=== PATIENT | female | born 1950 | race Caucasian/White ===

== ENCOUNTER → 2018-01-24 | Day surgery (SDC) | payer MEDICARE, BC ==
[~2018-01-24] MED LIST: ACETAMINOPHEN 1000 MG/100 ML 100 ML IV ONE; ACETAMINOPHEN/HYDROcodone 325 MG/5 MG TAB ONE; BUPIVACAINE/EPINEPHRINE 0.5% PF 30 ML VIAL ONE; GLYCOPYRROLATE 0.2 MG/ML VIAL IV ONE; KETOROLAC TROMETHAMINE 30 MG/ML (IVP) VIAL IV PUSH ONE; LACTATED RINGER'S 1000 ML INJ 1,000 ML ONE; METRONIDAZOLE 500 MG IV ONE; MIDAZOLAM HCL 2 MG/2 ML VIAL ONE; MORPHINE SULFATE 2 MG/ML SYRINGE ONE; NEOSTIGMINE METHYLSULFATE 10 MG/10 ML VIAL IV PUSH ONE; ONDANSETRON HCL 4 MG/2 ML VIAL IV PUSH ONE; PROPOFOL 200 MG/20 ML AMP IV ONE; ceFAZolin INJ 1,000 MG VIAL ONE
--- NOTE | 2018-01-24 19:14 | MP ---
cc: Jarrod Brown MD,Luly Bianchi MD, MD,Esperanza Solorzano MD DATE OF OPERATION: 01/24/2018 PROCEDURE: 1. Laparoscopic cholecystectomy. 2. Primary repair of umbilical hernia. PREOPERATIVE DIAGNOSIS: Epigastric and right upper quadrant pain with cholelithiasis. POSTOPERATIVE DIAGNOSIS: Epigastric and right upper quadrant pain with cholelithiasis. Umbilical hernia, reducible. ANESTHESIA: General endotracheal SURGEON: Jarrod Brown MD ESTIMATED BLOOD LOSS: 10 mL FLUIDS: 650 mL crystalloid. COMPLICATIONS: None. DRAINS: None. SPECIMENS: Gallbladder and contents to pathology. PROCEDURE IN DETAIL: The patient was taken to the operating room and placed on the operating table in the supine position. After an adequate level of general endotracheal anesthesia was achieved, the abdomen was prepped and draped in the usual fashion. Timeout was taken confirming the correct patient, site, and procedure to be performed. Skin and subcutaneous tissue was infiltrated with local anesthetic and an incision made in the umbilicus and carried through the fascia sharply. The preperitoneal fat was taken down from the umbilical hernia and the peritoneal cavity was directly visualized. A 12 mm balloon trocar was inserted and the balloon inflated. The abdomen was insufflated. The patient was placed in reverse Trendelenburg position. Three 5 mm trocars were then placed, with the first to the right of the falciform ligament and second and third in the right subcostal region. All entered the abdominal cavity under direct vision uneventfully. With the patient in reverse Trendelenburg position, the fundus of the gallbladder was grasped and retracted up and over the dome of the liver. The cystic duct infundibular junction was circumferentially dissected. A very diminutive cystic artery was circumferentially dissected as well. A single clip was placed on this and it was divided. The cystic duct was circumferentially dissected further and, as the patient had normal liver function tests and normal caliber common bile duct as well as normal appearing ductal anatomy, cholangiogram was not obtained. The cystic duct was doubly clipped distally, singly clipped on the gallbladder side and divided. The gallbladder was dissected off of the liver bed with electro dissection. The gallbladder was removed via the umbilical port while observing via the upper 5 mm trocar site. The specimen was passed off the table. The upper abdomen was revisualized with the liver bed, the cystic duct stump and small cystic artery all revisualized and seen to be clean and dry. Insufflation was then discontinued and the upper abdominal trocars were removed under direct vision. No bleeding was noted from the trocar sites during desufflation. The laparoscope and umbilical port were then removed. The fascia was closed in the umbilicus with simple interrupted 0 Vicryl suture to close the hernia. The remaining local anesthetic was injected into each of the trocar sites. All 4 trocar sites were closed at the skin with 4-0 Vicryl in an interrupted buried fashion. All sites were dressed with Steri-Strips. The patient was extubated and taken back to the recovery room in stable condition. She tolerated the procedure well. MD TRISH Alcantara/ , 06:54 PM , 07:13 PM MIGUEL ANGEL
== END | disposition home or self-care (01) ==
LOC: ESDC 06:23
PROVIDERS: ATTEND Surgery Trauma Surgery
DX: K80.20 Calculus of gallbladder without cholecystitis without obstruction (principal); K42.9 Umbilical hernia without obstruction or gangrene
CPT/HCPCS: 00750; 00790; 47562; 49585; 88304; J0131; J0690; J1885; J2250; J2270; J2405; J2710; J3010; J7120

== ENCOUNTER 2018-04-09 08:27 | Inpatient (IN) ==
[2018-04-09] MEDS ORDERED: Chlorhexidine Gluconate 2% 1 Pack (2 Cloths) TOPICAL SCH (09:30)
[2018-04-09] MEDS ORDERED: Chlorhexidine 4% Topical 120 APPLIC/120 ML Bottle TOPICAL SCH (09:30)
[2018-04-09] MEDS ORDERED: Metoprolol Tartrate 25 MG Tablet PO SCH (09:30)
[2018-04-09] MEDS ORDERED: Vancomycin Inj 1 GM/200 ML PIGGYBACK IV.SIG SCH (10:00)
[2018-04-09] MEDS ORDERED: Sodium Chlor 0.9% Inj 500 ML IV.SIG SCH (10:00)
[2018-04-09] MEDS ORDERED: Dexamethasone Inj 20 MG/5 ML Vial IV.PUSH ONE (10:00)
[2018-04-09] MEDS ORDERED: ceFAZolin 2 GM Premix Inj 2 GM/50 ML PIGGYBACK IV.SIG SCH (10:00)
[2018-04-09] MEDS ORDERED: SODIUM CHLOR 0.9% IV.SIG SCH (10:00)
[2018-04-09] MEDS ORDERED: TRANEXAMIC ACID IV.SIG SCH (10:00)
[2018-04-09] MEDS ORDERED: Sodium Chlor 0.9% Inj 73.07 ML, Ropivacaine 0.5% PF Inj 24.63 ML, Ketorolac Inj 30 MG, ... P-ARTICULR SCH ×5 (10:00)
[2018-04-09] MEDS ORDERED: Bupivacaine Liposomal PF 1.3% Inj 20 ML Vial ONE ×2 (10:49→11:12)
[2018-04-09] MEDS ORDERED: Glycopyrrolate Inj 1 MG/5 ML Syringe IV.PUSH ONE (12:00)
[2018-04-09] MEDS ORDERED: hydrALAZINE HCl Inj 20 MG/ML Vial IV.PUSH ONE (12:00)
[2018-04-09] MEDS ORDERED: Neostigmine Inj 5 MG/5 ML Syringe IV.PUSH ONE (12:00)
[2018-04-09] MEDS ORDERED: Labetalol HCl Inj 100 MG/20 ML Vial IV.CONT ONE (12:00)
[2018-04-09] MEDS ORDERED: Lidocaine PF 1% Inj 5 ML Syringe INFILTRATN ONE (12:00)
[2018-04-09] MEDS ORDERED: Bisacodyl 10 MG Supp RECTAL PRN (13:12)
[2018-04-09] MEDS ORDERED: Post-op Orders (for Pharmacy) OTHER STA (13:12)
[2018-04-09] MEDS ORDERED: Morphine Inj 4 MG/ML Vial IV.PUSH PRN (13:12)
[2018-04-09] MEDS ORDERED: Aluminum/Magnesium/Simethacone Susp 30 ML UDC PO PRN (13:12)
--- NOTE | 2018-04-09 13:17 | P.OP ---
- Preoperative Diagnosis (1) Osteoarthritis of left knee - Postoperative Diagnosis (1) Osteoarthritis of left knee Date of procedure: 04/09/18 Procedure: Left total knee arthroplasty Anesthesia: GETA, regional (Adductor canal) Surgeon: Doug Biswas MD Medical Photographer: LAMBERT Nicholas The surgical procedure was assisted by my Advanced Registered Nurse Practitioner. My RECORD PRESS SUPERVISOR presence was necessary throughout this case for the manipulation and positioning of the surgical extremity. My RECORD PRESS SUPERVISOR was assisting me throughout the duration of this procedure. The skill set of an Advance Registered Nurse Practitioner was medically necessary to complete this procedure. During the surgical case, the surgical aides teacher was working at the back table and the Advance Registered Nurse Practitioner was directly assisting me. Operation and Findings: IMPLANTS: DePuy Attune: Patella: size 38. Femur, posterior stabilized size 5. Tibia, rotating platform size 4. Tibial insert, rotating platform, posterior stabilized size 5 mm thickness. ESTIMATED BLOOD LOSS: 150 cc TOURNIQUET TIME: 41 minutes at 250 mmHg pressure. JUSTIFICATION FOR PROCEDURE: The patient has end-stage osteoarthritis to the knee. There is an attached conservative measures pathway form in the chart that describes the nonoperative measures that were undertaken prior to consideration of surgical management. The patient understood the risks and benefits of surgical management. See my office notes for further details PROCEDURE: The patient was brought back to the operative theatre. Adequate anesthesia was obtained. The patient received intravenous vancomycin and Ancef. The lower extremity was prepped and draped in the usual sterile fashion.The leg was exsanguinated, the tourniquet was raised. A standard anterior incision was performed followed by medial parapatellar arthrotomy was performed. End-stage arthritis was identified. Osteotomy of the patella was performed. We drilled holes for the patella. We trialed the patella component. We placed an intramedullary guide into the distal femur. We ultimately resected 13 mm off of the distal femur in 5 degrees of valgus. The remnants of the ACL and PCL were resected. Osteotomy of the proximal tibia was performed, resecting 5 mm off of the medial side. This was done with 3 degrees of posterior slope using an extramedullary guide. The distal end of the guide was placed in the mid aspect of the ankle. The femur was sized, and four chamfer cuts were completed in 3 of external rotation. We then cut the central box in the distal femur to replace the PCL. We resected the remnants of the menisci and removed osteophytes off of the femur and tibia. We then trialed the knee. We punched the tibia for the keel, and then used standard technique to cement in components. Excess cement was removed. We trialed the knee again and the final polyethylene thickness was chosen to provide extension to 0 degrees, and flexion of 140 degrees to gravity. The ligaments were appropriately balanced. Lateral release was necessary to obtain excellent patellofemoral tracking. The tourniquet was released and adequate hemostasis was obtained. An intra- articular injection of a ropivacaine cocktail was injected. The posterior knee was inspected for excess cement, which was removed. The final polyethylene was put into position after thorough irrigation. We then closed deep fascia with a #2 Stratafix followed by skin with 2-0 Vicryl followed by Dermabond dressing. Postop plan is to weight-bear as tolerated. DVT prophylaxis will be performed with SCDs, JAIME thomas, early mobilization, and Lovenox followed by aspirin.
[2018-04-09] MEDS ORDERED: fentaNYL Citrate Inj 100 MCG/2 ML Ampul ONE (14:00)
[2018-04-09] MEDS ORDERED: SODIUM CHLOR 0.9% IV.SIG ONE (14:00)
[2018-04-09] MEDS ORDERED: TRANEXAMIC ACID IV.SIG ONE (14:00)
[2018-04-09] MEDS: Sod Chloride 0.9% Inj 1,000 ML IV.CONT SCH (14:19)
[2018-04-09] MEDS ORDERED: *morphine SULFATE 4 MG/ML PERIprocedure ONLY ONE ×2 (14:24→14:41)
--- NOTE | 2018-04-09 15:08 | XR ---
EXAM DATE: 04/09/2018 3:00 PM EDT AGE/SEX: 67 years / Female INDICATIONS: Post op left knee surgery. CLINICAL DATA: This is the patient's initial encounter. Patient reports that signs and symptoms have been present for 1 day and indicates a pain score of 7/10. MEDICAL/SURGICAL HISTORY: None. None. COMPARISON: No prior exams available for comparison. FINDINGS: There is a knee prosthesis in place. There is good position and alignment of the bony structures. The bony structures are grossly intact. Postsurgical changes are demonstrated. CONCLUSION: Good position and alignment on this postoperative study. Electronically signed by: Mau Rueda MD 04/09/2018 3:07 PM EDT
[2018-04-09] MEDS ORDERED: HYDROmorphone PF Inj 2 MG/ML Vial ONE (15:10)
--- NOTE | 2018-04-09 15:51 | P.DCO ---
- Physical Therapy Physical Therapy: Gait training, Transfer training, bed to chair Knee: Total knee Left Lower Extremity Weight Bearing: Weight bearing as tolerated Left Lower Extremity Range of Motion: Active ROM - Nursing Nursing: Stephany dill Dressing changes: Do not change dressing Additional instructions: First dressing change in the office - Certification Need for Home Health services: I have seen patient Tanisha Paredes on 04/09/18. My clinical findings support the need for the requested home health care services because: Need for Home Health Services: Deconditioned with increased weakness, High risk of falls Homebound Certification: I certify that my clinical findings support that this patient is homebound because: Homebound Certification: Post-op weakness, Unsteady gait/balance
[2018-04-09] MEDS ORDERED: traZODone 50 MG Tablet PO SCH (21:00)
[2018-04-09] MEDS ORDERED: Zolpidem Tartrate 5 MG Tablet PO PRN (21:00)
[2018-04-09] MEDS: Pantoprazole Sodium 20 MG DR Tablet PO SCH (22:16)
[2018-04-09] MEDS: Senna/Docusate Sodium 8.6/50 MG Tablet PO SCH (22:17)
[2018-04-09] MEDS: Multivitamin/Minerals Therapeutic Tablet PO SCH (22:17)
[2018-04-10 05:56] LABS: Hematocrit 35.4 % (35.0-46.0); Hemoglobin 11.3 gm/dL (11.6-15.3)
[2018-04-10] MEDS ORDERED: Levothyroxine 125 MCG Tablet PO SCH (06:00)
[2018-04-10] MEDS ORDERED: Dexamethasone Inj 20 MG/5 ML Vial IV.PUSH ONE (08:00)
[2018-04-10] MEDS ORDERED: Venlafaxine XR 37.5 MG Capsule PO SCH (09:00)
[2018-04-10] MEDS ORDERED: Fenofibrate 145 MG Tablet PO SCH (09:00)
[2018-04-10] MEDS ORDERED: buPROPion 150 MG 12 HR Tablet PO SCH (09:00)
[2018-04-10] MEDS: Sod Chloride 0.9% Inj 1,000 ML IV.CONT SCH (09:02)
[2018-04-10] MEDS: Multivitamin/Minerals Therapeutic Tablet PO SCH (09:03)
[2018-04-10] MEDS: Senna/Docusate Sodium 8.6/50 MG Tablet PO SCH (09:03)
[2018-04-10] MEDS: Pantoprazole Sodium 20 MG DR Tablet PO SCH (09:04)
[2018-04-10] MEDS ORDERED: Enoxaparin Inj 40 MG/0.4 ML Syringe SQ SCH (13:00)
--- NOTE | 2018-04-10 19:05 | P.PNOP ---
Subjective Interval history: The patient has requested early discharge today prior to evaluation by the undersigned. Physical Exam Vital signs: Vital Signs 04/09/18 20:00 04/10/18 00:00 04/10/18 04:00 Temperature 97.4 F L 97.5 F L 97.7 F Pulse Rate 88 86 65 Respiratory Rate 17 18 17 Blood Pressure 124/80 92/53 L 97/58 L Pulse Oximetry 96 93 L 96 04/10/18 08:00 04/10/18 12:00 Temperature 98.0 F 97.8 F Pulse Rate 65 63 Respiratory Rate 17 18 Blood Pressure 106/57 L 118/68 Pulse Oximetry 97 99 Intake & Output 04/10/18 04/10/18 04/11/18 06:59 18:59 06:59 Intake Total 200 / 200 Balance 200 / 200 Weight 92.6 kg Intake: IV 200 / 200 Ancef Inj 1,000 MG In NS Inj 200 / 200 100 ML @ 200 mls/hr IV.SIG Q6H ANASTASIA Rx#:[id number] Other: # Voids 2 Date of Last Bowel Movement 04/08/18 04/08/18 Results - Labs CBC & Chem 7: 04/10/18 04:55 Laboratory Results - last 24 hr 04/10/18 04:55 Hgb 11.3 L Hct 35.4 Assessment and Plan - Problem List (1) Status post total knee replacement, left Code(s): Z96.652 - Presence of left artificial knee joint Status: Acute (2) Osteoarthritis of left knee Code(s): M17.12 - Unilateral primary osteoarthritis, left knee Status: Acute - Assessment and Plan POD #1: Left total knee arthroplasty 1. Weightbearing as tolerated on left lower extremity. 2. Lovenox followed by aspirin for DVT prophylaxis. 3. Ice as needed for swelling. 4. Stable per ortho for discharge to home health. The patient was discharged prior to evaluation today by the undersigned. The patient had a clean, dry, and intact dressing per conversation with the nurse. The patient's postop labs were reviewed prior to discharge by the undersigned. The patient was instructed in her postop plan of care prior to surgery and reinforced today by staff per the undersigned's request. 5. The patient will follow up with Dr. Biswas and/or LAMBERT Gray as previously scheduled.
--- NOTE | 2018-04-23 16:07 | P.DS ---
Date of admission: 04/09/18 08:27 Primary care physician: Dr Esperanza Kim Attending physician on discharge: Doug Biswas Anticipated date of discharge: 04/10/18 Brief History from admission: The patient has a history of severe OA of the left knee and was admitted for a left TKA DS: Diagnosis - Discharge Diagnosis (1) Status post total knee replacement, left Status: Acute Diagnosis: Principal (2) Osteoarthritis of left knee Status: Acute Diagnosis: Principal DS: Summary Hospital Course: The patient was admitted to the hospital for severe osteoarthritis of the [left ] knee to have a [left] total knee arthroplasty. The patient's surgery went well with no complication. The patient is on a [regular] diet. The patient's DVT prophylaxis includes use of [Lovenox followed by aspirin]. The patient is weightbearing as tolerated. The patient was discharged [home with home health] and will follow up in the office with Dr. Biswas and/or LAMBERT Gray as previously scheduled. - Time Spent with Patient Total time spent providing and/or coordinating discharge services: Greater than 30 minutes - Quality: VTE Deep Vein Thrombosis/Pulmonary Embolism Present on Admission: No Exam Narrative: See last progress note for physical examination Results Procedures completed during hospitalization: Left TKA - Impressions ITS Impressions Knee X-Ray 04/09/18 13:12 CONCLUSION: Good position and alignment on this postoperative study. Discharge Plan - Discharge Disposition Patient Disposition: W/Home Health Service - Discharge Condition Condition: Stable - Discharge Order Discharge Orders: Discharge Order (Routine); Ordered 04/09/18 Ordered By: Markie Yost - Discharge Details Anticipated Discharge Date: 04/10/18 Discharge Comment: The patient will follow-up in the office as previously scheduled with Dr. Biswas or LAMBERT Gray - Physicians Team Attending Provider: Doug Biswas - Rxs /Orders / Referrals /Forms Prescriptions: Continue biotin 2,500 mcg Capsule 2,500 mcg PO DAILY bupropion HCl 150 mg Tablet Extended Release 12 Hr 150 mg PO DAILY fenofibrate 160 mg Tablet 160 mg PO DAILY irbesartan 150 mg Tablet 150 mg PO BID levothyroxine [Synthroid] 125 mcg Tablet 125 mcg PO DAILY pantoprazole 20 mg Tablet,Delayed Release (Dr/Ec) 20 mg PO BID trazodone 50 mg Tablet 50 mg PO HS venlafaxine 37.5 mg Tablet Extended Release 24hr 37.5 mg PO DAILY Discontinued aspirin [Aspir-81] 81 mg Tablet,Delayed Release (Dr/Ec) 81 mg PO DAILY ibuprofen [Advil] 200 mg Tablet 600 mg PO DAILY PRN (Reason: Pain) No Action hydrocodone-acetaminophen [[place]] 5-325 mg tablet 1 tab PO Q4H PRN (Reason: pain) Qty: 20 RF: 0 Ambulatory Orders / Order Sets / DME: Adjustable Commode 3-in-1 (1 each) (Routine) Location: Determined by Patient Ordered By: Markie Yost CPM - Continuous Passive Motion Machine (1 each) (Routine) Location: Determined by Patient Ordered By: Markie Yost Walker With Front Wheels (1 each) (Routine) Timeframe: 1 Day Location: Determined by Patient Ordered By: Markie Yost Referrals: Dr Esperanza Kim MD [Other] - See Instructions Doug Biswas MD [Physician] - See Instructions - Discharge Instructions Patient Printed Instructions: Knee Replacement (DC) Additional Instructions: The patient will follow-up in the office as previously scheduled with Dr. Biswas or LAMBERT Gray - Post Discharge Care Plan Care Plan Goals: Your Health Problems: Goals to Promote Your Health: * To prevent worsening of your condition * To maintain your health at the optimal level Directions to Meet Your Goals: * Take your medications as prescribed * Follow your dietary instruction * Follow activity as directed * Keep your appointments as scheduled * Take your immunizations and boosters as scheduled * If your symptoms worsen call your PCP * If no PCP go to Urgent Care or Emergency Room Smoking is dangerous to your health. Avoid second hand smoke. You may reach the 24-hour crisis hotline for domestic abuse at .
== END 2018-04-10 14:37 | disposition home health service (06) ==
LOC: HSDI 08:27 → N06 19:09
PROVIDERS: ADMIT Orthopaedic Surgery; ATTEND Orthopaedic Surgery